=== PATIENT | female | born 1935 | race Caucasian/White ===

== ENCOUNTER 2017-03-17 23:38 | Emergency (ER) | payer MEDICARE, OTHER ==
[2017-03-18 00:30] VITALS: BP 154/88
--- NOTE | 2017-03-18 00:35 | ER Document Report ---
ED General - General Chief Complaint: High Blood Pressure Stated Complaint: BLOOD PRESSURE ISSUES Notes: 81-year-old female with anxiety and hypertension presents with swelling of the face subjective headache that she thinks is a sinus infection as well as a hoarse voice for a few days. Constant. Not worsening. Then tonight she took her blood pressure and was elevated and she gets anxious. She took a half a Xanax and came to the ED. She has intermittent chest burning she attributes to dyspepsia since they discontinued her proton pump inhibitor but has none now. She is a mild headache but no vomiting. She is concerned because she "had a heart attack last time and I waited too long." TRAVEL OUTSIDE OF THE [place] 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 pylori last year. Denies: Hx Hepatitis, Hx Hiatal Hernia Psychiatric Medical History: Denies: Hx Depression Infectious Medical History: Denies: Hx Hepatitis Past Surgical History: Reports: Hx Hysterectomy. Denies: Hx Mastectomy, Hx Open Heart Surgery, Hx Pacemaker - Immunizations Hx Diphtheria, Pertussis, Tetanus Vaccination: Yes Hx Pneumococcal Vaccination: 08/20/12 Review of Systems - Review of Systems Notes: REVIEW OF SYSTEMS GEN: Denies fever, chills, weight loss ENT: Denies sore throat, nasal discharge, ear pain and sinus pressure. EYES: Denies blurry vision, eye pain, discharge CV: Denies chest pain, palpitations, edema RESP: Denies cough, shortness of breath, wheezing GI: Denies abdominal pain, nausea, vomiting, diarrhea MSK: Denies joint pain/swelling, edema, SKIN: Denies rash, skin lesions LYMPH: Denies swollen glands/lymph nodes NEURO: Denies focal weakness or numbness, dizziness PSYCH: Denies depression, suicidal or homicidal ideation PHYSICAL EXAMINATION General: No acute distress, well-nourished Head: Atraumatic, normocephalic ENT: Mouth normal, oropharynx moist, no exudates or tonsillar enlargement no sinus tenderness. Eyes: Conjunctiva normal, pupils equal, lids normal Neck: No JVD, supple, no guarding CVS: Normal rate, regular rhythm, no murmurs Resp: No resp distress, equal and normal breath sounds bilaterally GI: Nondistended, soft, no tenderness to palpation, no rebound or guarding Ext: No deformities, no edema, normal range of motion in upper and lower ext Back: No CVA or midline TTP Skin: No rash, warm Lymphatic: No lymphadeopathy noted Neuro: Awake, alert. Face symmetric. GCS 15. Physical Exam - Vital signs Vitals: Temp Pulse Resp BP Pulse Ox 97.6 F 64 18 189/68 H 95 03/17/17 23:43 03/17/17 23:43 03/17/17 23:43 03/17/17 23:43 03/17/17 23:43 Course - Re-evaluation Re-evalutation: 03/18/17 00:16 Hypertension anxiety and 81-year-old female. She has slightly high blood pressure tonight. She appears anxious. Her chest symptoms are intermittent and not currently active so I do not believe she is having acute coronary syndrome but I will check an EKG. Otherwise she can be discharged home safely and follow-up with her primary care. She has no signs of bacterial illness including sinusitis. Insert discharge 03/18/17 00:38 EKG normal. Patient reassured. Recommended Coricidin HBP for control of her sinustype symptoms. I have discussed with the patient there likely diagnosis, aftercare plan, follow -up plans and my usual and customary return precautions. They verbalized understanding of this. - Vital Signs Vital signs: Temp Pulse Resp BP Pulse Ox 97.6 F 64 18 189/68 H 95 03/17/17 23:43 03/17/17 23:43 03/17/17 23:43 03/17/17 23:43 03/17/17 23:43 - EKG Interpretation by Me EKG shows normal: Sinus rhythm Rhythm: NSR - No ST or T-wave changes, no change from prior Discharge - Discharge Clinical Impression: Hypertension Qualifiers: Hypertension type: unspecified Qualified Code(s): I10 - Essential (primary) hypertension Condition: Good Instructions: High Blood Pressure, Requiring Treatment ([facility]) Additional Instructions: Please get your blood pressure checked on Sunday at your primary care doctor's office and discuss changes in her medications. Referrals: ANA MARIA MARTINEZ MD [ACTIVE STAFF] - Follow up in 3-5 days
--- NOTE | 2017-03-18 11:14 | EKG REPORT ---
SEVERITY:- ABNORMAL ECG - SINUS RHYTHM ATRIAL PREMATURE COMPLEX PROBABLE INFERIOR INFARCT, AGE INDETERMINATE : Confirmed by: Janice Burgos MD 18-Mar-2017 11:14:08
== END 2017-03-18 00:35 | disposition home or self-care (01) ==
LOC: ER 23:38
DX: I10 Essential (primary) hypertension (principal); F41.9 Anxiety disorder, unspecified; R22.0 Localized swelling, mass and lump, head; R51 Headache
CPT/HCPCS: 93005; 93010; 99283

== ENCOUNTER 2020-03-03 19:35 | Emergency (ER) | payer MEDICARE, OTHER ==
[2020-03-03 21:07] VITALS: BP 178/78
--- NOTE | 2020-03-03 21:10 | ER Document Report ---
ED Medical Screen (RME) - General Chief Complaint: Blood Pressure Problem Stated Complaint: BLOOD PRESSURE HIGH Time Seen by Provider: 03/03/20 20:58 Primary Care Provider: ANA MARIA MARTINEZ MD [Primary Care Provider] - Follow up tomorrow Mode of Arrival: Wheelchair Information source: Patient Notes: 84-year-old female presented to ED for elevated blood pressure. She states that she has a history of elevated blood pressure and she just started on a new medication yesterday. She states her blood pressure was 192/107 at home so she became very worried and took her Xanax. She states it was still up so she came to the emergency room to have it evaluated. She states she has a history of high blood pressure heart attack with 2 stents cardiac cath anxiety ovarian tumor with a hysterectomy and ulcers. She states she does not smoke drink or do any drugs. She is here with her and her is driving. TRAVEL OUTSIDE OF THE [place] IN LAST 30 DAYS: No - HPI Onset: Other - History of elevated blood pressure 192/107 at home Onset/Duration: Intermittent Quality of pain: No pain Severity: Moderate Pain Level: 3 Associated Symptoms: Other - Elevated blood pressure Exacerbated by: Denies Relieved by: Denies Similar symptoms previously: Yes Recently seen / treated by doctor: Yes - Related Data Smoking: Non-smoker Frequency of alcohol use: None Drug Abuse: None Allergies/Adverse Reactions: chlorpheniramine maleate [From Decongest Multi-Action] Allergy (Intermediate, Verified 10/11/15 13:12) high BP pseudoephedrine HCl [From Decongest Multi-Action] Allergy (Intermediate, Verified 10/11/15 13:12) high BP Past Medical History - General Information source: Patient - Social History Cigarette use (# per day): No Frequency of alcohol use: None Drug Abuse: None Lives with: Family Family history: Reviewed & Not Pertinent - Past Medical History Cardiac Medical History: Reports: Hx Coronary Artery Disease, 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 pylori last year, Hx Colonoscopy, Hx Endoscopy Musculoskeltal Medical History: Reports Hx Arthritis Skin Medical History: Reports None Psychiatric Medical History: Reports: Hx Anxiety Traumatic Medical History: Reports: None Infectious Medical History: Reports: None Past Surgical History: Reports: Hx Hysterectomy - Immunizations Hx Diphtheria, Pertussis, Tetanus Vaccination: Yes Review of Systems - Review of Systems Constitutional: No symptoms reported EENT: No symptoms reported Cardiovascular: Other - Elevated blood pressure Respiratory: No symptoms reported Gastrointestinal: No symptoms reported Genitourinary: No symptoms reported Female Genitourinary: No symptoms reported Musculoskeletal: No symptoms reported Skin: No symptoms reported Hematologic/Lymphatic: No symptoms reported Neurological/Psychological: Anxiety -: Yes All other systems reviewed and negative Physical Exam - Vital signs Vitals: Temp Pulse Resp BP Pulse Ox 97.7 F 85 12 184/82 H 96 03/03/20 19:45 03/03/20 19:45 03/03/20 19:45 03/03/20 19:45 03/03/20 19:45 Interpretation: Hypertensive Notes: 184/82 in triage and when I saw her in the pit area it was 178/78. She states she was no longer feeling anxious. - General General appearance: Appears well, Alert - HEENT Head: Normocephalic, Atraumatic Eyes: Normal Pupils: PERRL - Respiratory Respiratory status: No respiratory distress Chest status: Nontender Breath sounds: Normal Chest palpation: Normal - Cardiovascular Rhythm: Regular Heart sounds: Normal auscultation Murmur: No - Abdominal Inspection: Normal Distension: No distension Bowel sounds: Normal Tenderness: Nontender Organomegaly: No organomegaly - Back Back: Normal, Nontender - Extremities General upper extremity: Normal inspection, Nontender, Normal color, Normal ROM, Normal temperature General lower extremity: Normal inspection, Nontender, Normal color, Normal ROM, Normal temperature, Normal weight bearing. No: Lori's sign - Neurological Neuro grossly intact: Yes Cognition: Normal Orientation: AAOx4 Rose Coma Scale Eye Opening: Spontaneous Rose Coma Scale Verbal: Oriented Rose Coma Scale Motor: Obeys Commands Rose Coma Scale Total: 15 Speech: Normal Motor strength normal: LUE, RUE, LLE, RLE Sensory: Normal - Psychological Associated symptoms: Normal affect, Normal mood - Skin Skin Temperature: Warm Skin Moisture: Dry Skin Color: Normal Course - Re-evaluation Re-evalutation: 03/03/20 22:09 Discussed blood pressure at length with patient and . Instructed patient to please call primary doctor tomorrow. Patient states she was feeling much better she was no longer anxious. She states that she might call the doctor tomorrow so I talked with the . stated yes she would be calling the doctor tomorrow and she will probably be seen the doctor tomorrow. Patient has no neurological deficits at this time. She states the only reason she came in is she was concerned of the blood pressure at home since she just changed her blood pressure medicine. - Vital Signs Vital signs: Temp Pulse Resp BP Pulse Ox 98.6 F 61 20 178/78 H 98 03/03/20 21:23 03/03/20 21:23 03/03/20 21:23 03/03/20 21:07 03/03/20 21:23 Doctor's Discharge - Discharge Clinical Impression: High blood pressure Qualifiers: Hypertension type: unspecified Qualified Code(s): I10 - Essential (primary) hypertension Condition: Stable Disposition: HOME, SELF-CARE Additional Instructions: HIGH BLOOD PRESSURE REQUIRING TREATMENT: Your blood pressure is high. This is called "hypertension." Today's reading was 78/78 (normal is less than 140/90). Your history and exam suggest that this is not a temporary problem. You need treatment of your blood pressure. If left untreated, high blood pressure greatly increases your risk of heart attack and stroke. Please don't ignore this problem. If you have blood pressure medicine but aren't using it regularly, start taking it again. Some simple things you can do to help are: Get some aerobic exercise for at least 20 minutes on a daily basis. (See your doctor before beginning any new exercise program.) Eat a low-fat diet. Lose excess weight. Avoid salty foods and avoid adding salt to any of the foods you eat. Avoid diet pills, decongestants, "energizing" herbs, and other medicines that elevate blood pressure. There are many different medicines that treat blood pressure. If your medication causes unpleasant side effects, call your doctor. There are others you can try. Treating hypertension is a life-long investment in your health. Please continue to take your current blood pressure medicine. Please take all of your medications as prescribed. Call your primary care doctor in the morning for follow-up. Please let him know that your blood pressure was 178/78 at discharge and you stated it was 192/170 at home. Your pulse is 85. FOLLOW-UP CARE: If you have been referred to a physician for follow-up care, call the physicians office for an appointment as you were instructed or within the next two days. If you experience worsening or a significant change in your symptoms, notify the physician immediately or return to the Emergency Department at any time for re-evaluation. Forms: Elevated Blood Pressure Referrals: ANA MARIA MARTINEZ MD [Primary Care Provider] - Follow up tomorrow
== END 2020-03-03 21:16 | disposition home or self-care (01) ==
LOC: ER 19:35
DX: I10 Essential (primary) hypertension (principal); I25.10 Atherosclerotic heart disease of native coronary artery without angina pectoris; I25.2 Old myocardial infarction
CPT/HCPCS: 99283